=== PATIENT | male | born 1965 | race Caucasian/White ===

== ENCOUNTER 2019-08-12 23:30 | Inpatient (IN) | payer OTHER ==
[2019-08-13] MEDS: LORAZEPAM 2 MG INJ IV (00:31)
[2019-08-13] MEDS ORDERED: DEXTROSE 50% 50 ML SYRINGE (00:46)
[2019-08-13] MEDS: DEXTROSE 50% 50 ML SYRINGE IV (02:02)
[2019-08-13] MEDS ORDERED: DOCUSATE SODIUM 100 MG CAP PO (02:30)
[2019-08-13] MEDS ORDERED: DEXTROSE 50% 50 ML SYRINGE IV ×2 (02:30)
[2019-08-13] MEDS ORDERED: NACL 0.9% 3 ML SYG IV (02:30)
[2019-08-13] MEDS ORDERED: GLUCAGON 1 MG INJ IM (02:30)
[2019-08-13] MEDS ORDERED: ONDANSETRON 4 MG INJ IV (02:30)
[2019-08-13] MEDS ORDERED: BISACODYL (EC) 5 MG TAB PO (02:30)
[2019-08-13] MEDS ORDERED: GLUCOSE GEL 15 GRAM TUBE PO ×2 (02:30)
[2019-08-13] MEDS ORDERED: GLUCOSE GEL 15 GRAM TUBE BUCCAL (02:30)
[2019-08-13] MEDS: SOD CHLORIDE 0.9% 1,000 ML IV (02:31)
[2019-08-13] MEDS: DEXTROSE 5%-0.45% NACL 1,000 ML IV (03:58)
[2019-08-13] MEDS: INSULIN ASPART [NOVOLOG] 3 ML PEN SC ×5 (05:00→21:00)
[2019-08-13] MEDS: CEFTRIAXONE 2 GM/50 ML (PMX) 50 ML IVPB (12:16)
[2019-08-13] MEDS ORDERED: THIAMINE 200 MG INJ IV (14:00)
[2019-08-13] MEDS: THIAMINE 500 MG in SOD CHLORIDE 0.9% 100 ML IVPB ×2 (15:42→21:48)
[2019-08-13] MEDS ORDERED: hydrALAzine 20 MG INJ IV (21:30)
[2019-08-14] MEDS: INSULIN ASPART [NOVOLOG] 3 ML PEN SC ×6 (01:00→21:19)
[2019-08-14] MEDS: ACCU-CHEK XX (02:00)
[2019-08-14] MEDS: THIAMINE 500 MG in SOD CHLORIDE 0.9% 100 ML IVPB ×3 (06:24→21:00)
[2019-08-14] MEDS: ACETAMINOPHEN 325 MG TAB PO (18:45)
[2019-08-15] MEDS: ACCU-CHEK XX (02:04)
[2019-08-15] MEDS: THIAMINE 500 MG in SOD CHLORIDE 0.9% 100 ML IVPB (06:07)
[2019-08-15] MEDS: INSULIN ASPART [NOVOLOG] 3 ML PEN SC ×2 (07:55→11:50)
== END 2019-08-15 13:49 | disposition left against medical advice (07) | DRG 644 ==
LOC: E/R 23:30 → TEL 08-13 02:13
DX: E16.1 Other hypoglycemia (principal); G93.40 Encephalopathy, unspecified; D64.9 Anemia, unspecified; F15.129 Other stimulant abuse with intoxication, unspecified; F10.10 Alcohol abuse, uncomplicated; Y90.0 Blood alcohol level of less than 20 mg/100 ml
CPT/HCPCS: 36415; 70450; 71045; 80048; 80053; 80307; 81001; 82728; 82962; 83036; 83540; 83605; 83735; 84443; 84484; 85025; 93005; 96374; 96375; 97162; 99285-25; G0378